=== PATIENT | male | born 1965 | race Caucasian/White ===

== ENCOUNTER 2017-11-17 10:59 | Emergency (ER) | payer BC, SELFPAY ==
[2017-11-17 11:03] VITALS: BP 110/84; PULSE 98; RESP 18; TEMP 36.3; O2SAT 97
--- NOTE | 2017-11-17 11:49 | ED.GENADUL ---
Disposition Clinical Impression: Hand laceration Disposition: HOME Condition: Fair Instructions: Care For Your Stitches (ED), Laceration (ED), Skin Adhesive Care (ED) Additional Instructions: Keep wound clean, dry, covered. Keep current dressing on for the next 24 hours. After that time he may change the dressing but please reapply a sterile dressing. Monitor for signs of infection including redness, warmth, drainage, fever/chills. If these arise please seek care urgently once again. Allow the adhesive to come off naturally. When at work or when performing activities that may put you at risk for contamination of your laceration, please wear gloves. You may wash with running water and soap but do not soak or submerge this will increase her risk of infection. Please return in 1 week for suture removal. Referrals: [facility] Emergency Dept. [Outside] Forms: Work Release Medical Decision Making - Medical Decision Making Patient presents today with chief complaint of laceration to the left hand. Patinet LHD. No neurovascular injury noted. No ligamentous involvement on exam. Wound is 8cm in length total but only the central 2cm is into the subcutaneous tissue and appears to need closure. Patient UTD on immunizations. Patient is close closure techniques. We discussed risk/benefits as well as the expected procedural steps. He voices understanding and wished to proceed. Procedure note: Using standard sterile technique, the wound was first washed with sterile saline. 2% lidocaine plain was then used to anesthetize the area. 5 cc was used. The sufficiently anesthetized the area. It was then copiously irrigated with sterile saline and cleansed chlorhexidine. Wound is explored to base in bloodless field. No foreign body or debris was noted. No tendon or bony involvement was noted. Wound is approximately 2 cm in length. Patient has a superficial scratch that runs extending from this. Patient then has a 1 cm flap laceration. This is very superficial with wound edges lying in an appropriate approximated fashion. Attention was first turned to the deeper 2 cm wound. This was closed with #5 simple interrupted 5-0 nylon. Patient tolerated this well. The more distal 1 cm superficial flap wound was then reapproximated and closed with adhesive. Patient tolerated procedure well. Patient tolerated procedure well. A sterile dressing was applied. We discussed care of wound in depth. We discussed care of adhesive as well as the care of the sutures. We discussed how to keep the wound as clean as possible to prevent infection. We discussed activities that he should avoid that we will place him at high risk for infection. Discussed signs symptoms of infection in depth and when to seek care urgently once again. He will return in 7 days for suture removal. All his questions and concerns were addressed and he is in agreement this plan. Note for work outlining his restrictions was given. History of Present Illness - General Chief complaint: Laceration Stated complaint: LEFT HAND LACERATION Time Seen by Provider: 11/17/17 11:47 Source: patient, RN notes reviewed Mode of arrival: ambulatory Limitations: no limitations - History of Present Illness Initial comments: Patient is a 52-year-old [id number] male presenting today with chief complaint of laceration to left hand. Patient reports a prior to arrival, while at work, he was working with an auger which came down on the dorsal aspect of the left hand. Noted laceration. Last tetanus was in 2011. Denies any altered sensation. Denies other injury the time of the incident. Denies any difficulty with range of motion of the wrist or hand. Pain is minimal at this time. - Related Data Lisinopril 5 mg PO DAILY 05/31/13 Multivitamin [Multi-Vitamin Daily] 1 tab PO DAILY 05/31/13 [place]-3 Fatty Acids [Fish Oil] 300 mg PO DAILY 05/31/13 Albuterol Sulfate [Albuterol Sulfate Hfa] 2 puff IH Q4H PRN #1 [email or web address] 06/26/13 Fluticasone/Salmeterol [Advair HFA 115-21] 2 puff IH BID inhaler 08/30/14 Montelukast Sodium 10 mg PO DAILY 08/26/16 Tiotropium [place] [Spiriva Respimat] 4 gm IH DAILY 01/26/17 Tamsulosin HCl 0.4 mg PO DAILY #90 tab-cap 03/02/17 Allergies Allergy/AdvReac Type Severity Reaction Status Date / Time No Known Allergies Allergy Unverified 11/17/17 11:05 Review of Systems Constitutional: no symptoms reported Respiratory: no symptoms reported Musculoskeletal: as per HPI Skin: as per HPI Neurological: as per HPI. denies: numbness, paresthesias Past Medical History - Past Medical History Medical history: cancer (Melanoma), COPD, hypertension Surgical history: other (Gita fundoplication) General Exam - General Limitations: no limitations General appearance: alert, in no apparent distress - Respiratory Respiratory exam: Absent: respiratory distress - Extremities Exam Extremities exam: Present: full ROM, tenderness, normal capillary refill. Absent: normal inspection (Exam of the LUE significant for 8cm laceration. Of this, 2cm is into the subcutaneous tissue. The remaining is quite superficial. No active bleeding. The deeper portion is into subQ fat, no tendon or bony involvement is noted. Full ROM. Sensation intact. Ligamentous testing of digits without abnormality. ), joint swelling - Neurological Exam Neurological exam: Present: alert, normal gait. Absent: motor sensory deficit - Psychiatric Psychiatric exam: Present: normal affect, normal mood - Skin Skin exam: Absent: intact (laceration as above) Course Vital Signs - 24 hr 11/17/17 11:03 Temperature 36.3 C L Pulse 98 H Respiratory 18 Rate Blood Pressure 110/84 Pulse Oximetry 97
== END 2017-11-17 12:26 | disposition home or self-care (01) ==
PROVIDERS: Emergency Provider Physician Assistant; PCP Nurse Practitioner Family
DX: S65.212A Laceration of superficial palmar arch of left hand, initial encounter (principal); W27.0XXA Contact with workbench tool, initial encounter
CPT/HCPCS: 12002

== ENCOUNTER 2017-11-24 13:02 | Emergency (ER) | payer BC, SELFPAY ==
[2017-11-24 13:10] VITALS: BP 108/71; PULSE 79; RESP 18; TEMP 36.7; O2SAT 96
[2017-11-24 13:12] VITALS: BP 108/71; PULSE 79; RESP 18; TEMP 36.7; O2SAT 96
--- NOTE | 2017-11-24 13:15 | ED.GENADUL ---
Disposition Clinical Impression: Visit for suture removal Disposition: HOME Condition: Fair Additional Instructions: Continue to keep wound clean, dry, covered. Monitor for signs of infection including redness, warmth, drainage, fever/chills. If these arise please seek care urgently once again. Follow-up with primary care as needed. Referrals: Marlene Garcia NP [Primary Care Provider] - Medical Decision Making - Medical Decision Making Patient presents today with chief complaint suture removal. Wound appears to be healing quite well. #5 simple interrupted sutures are visualized. What appears to be healing well, sutures are ready for removal. #5 sutures were easily removed by myself with no pain or difficulty. Patient I discussed wound care. Advised again on the signs symptoms of infection when to seek care urgently once again. Given with the patient does for work, advised he try to keep this clean and covered to help prevent infection. All his questions and concerns were addressed and he is in agreement with this plan. History of Present Illness - General Chief complaint: SutureRem Stated complaint: SUTURE REMOVAL Time Seen by Provider: 11/24/17 13:05 Source: patient, RN notes reviewed Mode of arrival: ambulatory Limitations: no limitations - History of Present Illness Initial comments: Patient is a 52-year-old male presents today for suture removal. Patient was seen here 1 week ago, sutures were placed into the dorsal aspect of the left hand by myself. #5 sutures were placed. He reports he has been following my instructions for suture care. He denies any pain. No fevers or chills. Not noted any discharge. No pain with range of motion of the hand. Has not noted any altered sensation. - Related Data Lisinopril 5 mg PO DAILY 05/31/13 Multivitamin [Multi-Vitamin Daily] 1 tab PO DAILY 05/31/13 [place]-3 Fatty Acids [Fish Oil] 300 mg PO DAILY 05/31/13 Albuterol Sulfate [Albuterol Sulfate Hfa] 2 puff IH Q4H PRN #1 [email or web address] 06/26/13 Fluticasone/Salmeterol [Advair HFA 115-21] 2 puff IH BID inhaler 08/30/14 Montelukast Sodium 10 mg PO DAILY 08/26/16 Tiotropium [place] [Spiriva Respimat] 4 gm IH DAILY 01/26/17 Tamsulosin HCl 0.4 mg PO DAILY #90 tab-cap 03/02/17 Allergies Allergy/AdvReac Type Severity Reaction Status Date / Time No Known Allergies Allergy Unverified 11/24/17 13:14 Review of Systems Constitutional: no symptoms reported, see HPI Respiratory: no symptoms reported Musculoskeletal: as per HPI Skin: as per HPI Neurological: as per HPI Past Medical History - Past Medical History Medical history: cancer (Melanoma), COPD, hypertension Surgical history: other (Gita fundoplication) General Exam - General Limitations: no limitations General appearance: alert, in no apparent distress - Eye Eye exam: Present: normal apperance - Respiratory Respiratory exam: Absent: respiratory distress - Extremities Exam Extremities exam: Present: full ROM, normal capillary refill. Absent: normal inspection (Exam the patient's left upper extremity is significant for well healing well. No surrounding erythema, no drainage, no pain with palpation. Patient is not noted to have any soft tissue swelling. He has full range of motion of all of his digits and wrist.), tenderness, joint swelling - Neurological Exam Neurological exam: Present: alert, normal gait - Psychiatric Psychiatric exam: Present: normal affect, normal mood - Skin Skin exam: Absent: intact (As above) Course Vital Signs - 24 hr 11/24/17 11/24/17 13:10 13:12 Temperature 36.7 C 36.7 C Pulse 79 79 Respiratory 18 18 Rate Blood Pressure 108/71 108/71 Pulse Oximetry 96 96
== END 2017-11-24 13:20 | disposition home or self-care (01) ==
PROVIDERS: Emergency Provider Student in an Organized Health Care Education/Training Program; PCP Nurse Practitioner Family
DX: Z48.02 Encounter for removal of sutures (principal); S65.21 Laceration of superficial palmar arch; W27.0XXD Contact with workbench tool, subsequent encounter

== ENCOUNTER 2018-05-02 16:46 | Outpatient (REF) | payer BC, SELFPAY ==
[2018-05-02 22:14] LABS: Anion Gap 12.2 mmol/L (3-11); BUN 23 mg/dL (7-18); CO2 24.8 mmol/L (21.0-32.0); CREATININE 1.04 mg/dL (0.70-1.30); Calcium 8.8 mg/dL (8.5-10.1); Chloride 106 mmol/L (98-107); Cholesterol 208 mg/dL (50-200); Glucose 102 mg/dL (70-100); HDL Cholesterol 53 mg/dL (40-60); LDL CHOLESTEROL 134 mg/dL (<100); Potassium 4.1 mmol/L (3.5-5.1); Sodium 143 mmol/L (136-145); Triglyceride 131 mg/dL (30-150)
[2018-05-04 09:29] LABS: PSA, Screening 0.3 ng/ml (0-3.5)
== END 2018-05-02 17:06 ==
LOC: NCHCN 16:46
PROVIDERS: PCP Nurse Practitioner Family; Visit Provider Specialist/Technologist Athletic Trainer
DX: Z00.00 Encounter for general adult medical examination without abnormal findings (principal); Z13.228 Encounter for screening for other metabolic disorders; Z13.220 Encounter for screening for lipoid disorders; Z12.5 Encounter for screening for malignant neoplasm of prostate
CPT/HCPCS: 80048; 80061; 83721; 84153

== ENCOUNTER 2018-05-19 16:57 | Outpatient (REF) | payer BC, SELFPAY | END 2018-05-19 17:17 | LOC: NCHCN 16:57 | PROVIDERS: PCP Nurse Practitioner Family; Visit Provider Family Medicine | DX: J02.9 Acute pharyngitis, unspecified (principal) | CPT/HCPCS: 87070 ==

== ENCOUNTER 2018-11-09 08:41 | Emergency (ER) | payer BC, SELFPAY ==
[2018-11-09 08:47] VITALS: BP 137/75; PULSE 97; RESP 16; TEMP 36.7; O2SAT 94
--- NOTE | 2018-11-09 08:58 | ED.GENADUL_ITS ---
Discharge Plan Disposition Patient Disposition: HOME Condition: Fair Discharge Details Chief Complaint: Headache Clinical Impression: COPD with exacerbation, Cough Primary Care Provider: Sukh Rubalcava ED Provider: Mora Francois Home Meds and New Rx's Prescriptions: New prednisone 20 mg tablet 20 mg PO DAILY Qty: 40 RF: 0 doxycycline hyclate 100 mg tablet 100 mg PO BID Qty: 10 RF: 0 Continued Nucala 100 mg recon soln 100 mg SC Q4W RF: 0 tamsulosin 0.4 mg capsule 0.4 mg PO DAILY Qty: 90 RF: 4 Advair HFA 8 GM HFA aerosol inhaler 2 puff Inhalation BID RF: 0 Spiriva Respimat 4 GM mist 4 gm Inhalation DAILY RF: 0 multivitamin [Daily Multi-Vitamin] 1 EACH tablet 1 tab PO DAILY RF: 0 lisinopril 5 MG tablet 5 mg PO DAILY RF: 0 Fish Oil 300 MG capsule 300 mg PO DAILY RF: 0 albuterol sulfate 8.5 GM HFA aerosol inhaler 2 puff Inhalation Q4H PRN Qty: 1 RF: 0 montelukast 10 MG tablet 10 mg PO DAILY RF: 0 Discharge Instructions Instructions: COPD (Chronic Obstructive Pulmonary Disease) (ED), Acute Cough (ED) Additional Instructions: Encourage hydration. Tylenol and/or Ibuprofen as needed for discomfort. Please take steroids and antibiotics as prescribed. Use the medications as previously prescribed. Nebulizer helped here, please use this as prescribed when at home to help with symptoms. If you develop fevers/chills, shortness of breath, inabilitiy to stay hydrated or other new/worsening symptoms please seek care urgently once again. Please follow up with primary care next week if not improved. Referrals: Sukh Rubalcava [Primary Care Provider] - Discharge Data Discharge Date/Time-TO BE ENTERED AT DEPARTURE: 11/09/18 10:15 Medical Decision Making Patient presents today with chief complaint of URI. He reports for the past 2 days, he has been having cough, increased mucus and sputum production, sore throat, sinus congestion. No documented fevers but reports that he has been feeling warm. Denies any recent travel. No recent antibiotics. Denies any chest pain. Is not short of breath. Has felt tight and attributes this to his COPD. Patient does have nebulizer at home but does not use this. On exam, the patient does appear nontoxic. He is noted to be slightly tachycardic with a heart rate of 97. Plan to give nebulizer treatment, obtain chest x-ray. Discussed this plan with the patient is in agreement. Chest XR reviewed by radiologist and reviewed as normal. Reevaluated patient, she is feeling much improved after nebulizer, lungs sound more clear, minimal wheezing at this time. As the patient has hx of COPD and has had a recent increase in symptoms including cough, sputum production, plan to treat with anti biotics and steroids. He is given strict return precautions. I encouraged that he have close follow-up with primary care. All his questions and concerns were addressed and he is in agreement with this plan. HPI General Mode of arrival: ambulatory . Date/Time Provider Initiated Documentation: 11/09/18 08:42 . Limitations to Documentation: no limitations . Information obtained by: patient and RN notes reviewed . HPI Narrative: Patient is a 53-year-old male with history of COPD, presents today with chief complaint of URI. He reports that he began having congestion, sinus pressure, cough,GI upset, sore throat. States that he has felt like he has had low grade fever but reports that this has been subjective. Has felt tight , has used his rescue inhaler x 2 over the past 2 days. Has a nebulizer at home but has not used this. States he is bringing up scant amount of yellow phlegm. Is a nonsmoker. Denies CP. States that he has had diminished appetite but denies N/V/D. No abdominal pain. Related Data Home Medications Medication Instructions Recorded Confirmed Fish Oil 300 mg PO DAILY 05/31/13 11/09/18 lisinopril 5 mg PO DAILY 05/31/13 11/09/18 multivitamin [Daily Multi-Vitamin] 1 tab PO DAILY 05/31/13 11/24/17 albuterol sulfate 2 puff INHALATION Q4H PRN #1 06/26/13 11/09/18 [email or web address].ad Advair HFA 2 puff INHALATION BID inhaler 08/30/14 11/09/18 montelukast 10 mg PO DAILY 08/26/16 11/09/18 Spiriva Respimat 4 gm INHALATION DAILY 01/26/17 11/09/18 mepolizumab 100 mg subcutaneous 100 mg SC Q4W 08/30/18 11/09/18 solution tamsulosin 0.4 mg capsule 0.4 mg PO DAILY #90 tab-cap 08/30/18 11/09/18 doxycycline hyclate 100 mg PO BID #10 tab 11/09/18 prednisone 20 mg PO DAILY #40 tab 11/09/18 Previous Rx's Medication Instructions Recorded albuterol sulfate 2 puff INHALATION Q4H PRN #1 06/26/13 hfa.aer.ad tamsulosin 0.4 mg capsule 0.4 mg PO DAILY #90 tab-cap 08/30/18 doxycycline hyclate 100 mg PO BID #10 tab 11/09/18 prednisone 20 mg PO DAILY #40 tab 11/09/18 Allergies Allergy/AdvReac Type Severity Reaction Status Date / Time No Known Allergies Allergy Unverified 08/30/18 08:10 General Stated Complaint: Headache EUFEMIA: 3 Review of Systems Constitutional Reports as per HPI, Denies chills, Reports fatigue, Reports fever(s), Denies headache(s) and Denies poor appetite Eyes Reports as per HPI, Denies eye discharge and Denies irritation ENT Reports as per HPI and Denies headache(s) Cardiovascular Reports as per HPI, Denies chest pain, Denies dyspnea and Denies dyspnea on exertion Respiratory Reports as per HPI, Reports cough, Denies pain on inspiration, Denies pain with cough, Denies dyspnea and Denies dyspnea on exertion Gastrointestinal Reports as per HPI, Denies abdominal pain, Denies change in bowel habits, Denies nausea and Denies vomiting Integumentary/Breasts Reports as per HPI and Denies rash Neurologic Reports as per HPI and Denies headache(s) Endocrine Reports fatigue PFSH Medical History COPD (chronic obstructive pulmonary disease) GERD (gastroesophageal reflux disease) History of malignant melanoma Hyperlipidemia Hypertension Surgical History Colonoscopy - MAC EGD - MAC Skin Cancer Removal Social History Smoking/Tobacco Use Status: Former Tobacco Use Drug use: Never Substance use type: does not use Do you feel safe in your relationship?: Yes Exam Const General: cooperative, healthy appearing, comfortable, no acute distress, well developed and well groomed Nutritional Appearance: average body habitus and well nourished Orientation: alert and awake [facility] Head: normal to inspection, normocephalic and atraumatic Ears: hearing grossly normal bilaterally, external ears normal and TM's normal bilaterally General nose exam: external nose normal and nares normal Face and sinus: normal facial exam, sinuses nontender and face symmetric Mouth: oral mucosae normal, lip normal, tongue normal, oropharynx normal and moist mucous membranes Teeth and gingiva: dentition normal Throat: posterior oropharynx normal, tonsils normal and uvula midline Eyes General: appearance normal, both eyes and all related structures Neck Neck: normal visual inspection, full ROM, no lymphadenopathy and no meningeal signs Resp Effort & Inspection: normal respiratory effort, able to speak in complete sentences and no respiratory distress Auscultation: no rales, no rhonchi and wheezes expiratory wheezes and scattered wheezes Cardio Rate: regular rate Rhythm: regular rhythm Heart Sounds: S1 normal and S2 normal Skin General skin exam: no rashes or lesions noted Neuro General: alert and awake Cognition: normal cognition Speech: speech normal Gait: normal gait Psych Appearance: grossly normal and well kempt Mental Status: mental status grossly normal Speech and Movement: speech and movement normal Course Vital Signs Temperature 36.7 C 11/09/18 08:47 Pulse 97 H 11/09/18 08:47 Respiratory Rate 16 11/09/18 08:47 Blood Pressure 137/75 11/09/18 08:47 Pulse Oximetry 94 L 11/09/18 08:47 Temperature 36.7 C 11/09/18 08:47 Temperature Source Skin 11/09/18 08:47 Pulse 97 H 11/09/18 08:47 Respiratory Rate 16 11/09/18 08:47 Respiratory Effort Non-Labored 11/09/18 08:51 Blood Pressure 137/75 11/09/18 08:47 Pulse Oximetry 94 L 11/09/18 08:47 Oxygen Delivery Method Room Air 11/09/18 08:47 Oxygen Flow Rate 0 11/09/18 08:47 Pain Level 7 11/09/18 08:47
--- NOTE | 2018-11-09 09:03 | DI.RAD_ITS ---
SYMPTOMS/DIAGNOSIS: COUGH, WHEEZING PA AND LATERAL CHEST: Comparison is made with [id number]. The heart size is normal. The lungs show emphysematous and fibrotic changes. No superimposed infiltrate, effusion or pulmonary edema is seen. There is no pneumothorax. IMPRESSION: No acute abnormality.
[2018-11-09] MEDS: Albuterol/Ipratropium 3 ML UPD VIAL UPD (09:47)
--- NOTE | 2018-11-09 10:00 | NUR.NOTE ---
Nursing Note: pt reports moderate relief after nebulizer
--- NOTE | 2018-11-09 10:15 | NUR.NOTE ---
patient feels breathing is improved post nebulizer treatment Nursing Note:
== END 2018-11-09 10:15 | disposition home or self-care (01) ==
PROVIDERS: Emergency Provider Physician Assistant; PCP Specialist/Technologist Athletic Trainer
DX: J44.1 Chronic obstructive pulmonary disease with (acute) exacerbation (principal); J02.9 Acute pharyngitis, unspecified; R09.81 Nasal congestion; I10 Essential (primary) hypertension; Z87.891 Personal history of nicotine dependence
CPT/HCPCS: 94640; 99283; 71046; J7620

== ENCOUNTER 2019-05-12 11:04 | Outpatient (REF) | payer BC, SELFPAY ==
[2019-05-12 22:03] LABS: Hemoglobin A1C 5.8 % (3.8-5.6)
[2019-05-12 22:26] LABS: Anion Gap 9.3 mmol/L (3-11); BUN 21 mg/dL (7-18); CO2 27.7 mmol/L (21.0-32.0); CREATININE 0.86 mg/dL (0.70-1.30); Calcium 8.9 mg/dL (8.5-10.1); Calculated LDL 139 mg/dL (<100); Chloride 104 mmol/L (98-107); Cholesterol 212 mg/dL (<200); Glucose 92 mg/dL (74-106); HDL Cholesterol 50 mg/dL (40-60); Magnesium 2.1 mg/dL (1.8-2.4); Potassium 4.4 mmol/L (3.5-5.1); Sodium 141 mmol/L (136-145); TSH (W/Ref FT4) 1.52 uIU/mL (0.36-3.74); Triglyceride 117 mg/dL (<150)
== END 2019-05-12 11:24 ==
LOC: NCHCN 11:04
PROVIDERS: PCP Specialist/Technologist Athletic Trainer; Visit Provider Specialist/Technologist Athletic Trainer
DX: I10 Essential (primary) hypertension (principal); E78.5 Hyperlipidemia, unspecified
CPT/HCPCS: 80048; 80061; 83036; 83735; 84443

== ENCOUNTER 2019-05-30 01:25 | Outpatient (CLI) | payer BC, SELFPAY ==
--- NOTE | 2019-05-30 | DI.NM_ITS ---
APPROVED REPORT Exam: Exercise Treadmill Patient Location: Out-Patient Room/Bed: Stress Nurse: Sandi Mejia RN BMI: 23.08 Baseline Rhythm: Sinus Rhythm Medical History Medical History: Hyperlipidemia Cardiac Medications: Lisinopril Allergies: No known drug allergies Cardiac Risk Factors: Hyperlipidemia, Asthma, former smoker Pretest Chest Pain Characteristics: Exertional Chest pain Exercise History: Physically active Lung Sounds: Clear to auscultation Heart Sounds: Regular Stress Test Details Test: Exercise stress testing was performed using a Faheem protocol. Rest Isotope: Tc-99m Sestamibi. Dose: 10.7 Date: 05/30/2019 Injection Time: 1040 Stress Isotope: Tc-99m Sestamibi. Dose: 32.4 Date: 05/30/2019 Injection Time: 1210 HR Resting HR Supine: 68 bpm Max Heart Rate (APMHR): 166 bpm Resting HR Standin bpm Target HR (85% APMHR): 141 bpm Max HR Achieved: 154 bpm % of APMHR: 92 HR response to stress: Normal HR response to stress BP Resting BP Supine: 128/80 mmHg Resting BP Standin/80 mmHg Max BP: 180/80 mmHg Recovery BP: 136/88 mmHg BP response to stress: Normal blood pressure response to stress. ECG Resting ECG: Sinus Rhythm Stress ECG: Sinus Tachycardia ST Change: No significant ST segment changes Recovery ECG: Sinus Rhythm Recovery ST Change: No significant ST segment changes Clinical Reason for Termination: Fatigue Stress Symptoms: General Fatigue Exercise duration: 12 min01 sec Highest Stage Reached: Stage 4: 4.2 mph at 16% grade. Exercise capacity: 13.48 METs Functional Capacity: Average Capacity Scale: Active Stress ECG Conclusion 1. Patient exercised for 12 minutes (13 METS). 2. There is no evidence of ischemia on the ECG portion of this exam. Protocol Used: Faheem Protocol Stress Test Summary STAGE Time (mins) Speed (mph) Grade (%) HR BP SYMPTOMS METS Supine 68 128/80 Standing 76 130/80 1 3 1.7 10 98 140/82 4.6 2 6 2.5 12 109 140/86 7 3 9 3.4 14 132 10.2 4 12 4.2 16 154 12.9 1 min recovery 138 180/80 3 min recovery 100 150/78 6 min recovery 96 136/88 MPI Conclusion Ejection fraction was 56% with exercise. There were no wall motion abnormalities. There is no evidence of ischemia on the imaging portion of this exam. This represents a normal SPECT imaging test. Radiologist Interpretation Radiologist agrees with Forest Fire Prevention Manager's Interpretation. Radiologist Interpretation by: Jeannie Rojas MD Interpretation Date/Time: 05/30/2019 15:31:00
== END 2019-05-30 01:45 ==
PROVIDERS: PCP Specialist/Technologist Athletic Trainer; Visit Provider Specialist/Technologist Athletic Trainer
DX: R07.89 Other chest pain (principal); E78.5 Hyperlipidemia, unspecified; Z87.891 Personal history of nicotine dependence
CPT/HCPCS: 78452; 93017

== ENCOUNTER 2019-07-07 17:56 | Outpatient (CLI) | payer BC, SELFPAY ==
[2019-07-10 09:58] LABS: COVID-19 RT-PCR Result Negative (Negative)
== END 2019-07-07 18:16 ==
PROVIDERS: PCP Specialist/Technologist Athletic Trainer; Visit Provider Physician Assistant
DX: J44.1 Chronic obstructive pulmonary disease with (acute) exacerbation (principal)
CPT/HCPCS: U0003

== ENCOUNTER 2019-09-15 08:59 | Outpatient (REF) | payer BC, SELFPAY ==
[2019-09-15 20:03] LABS: Hemoglobin A1C 5.7 % (3.8-5.6)
[2019-09-15 20:10] LABS: ALT 27 U/L (16-63); AST 23 U/L (15-37); Albumin 3.9 g/dL (3.4-5.0); Alkaline Phosphatase 71 U/L (46-116); Bilirubin, Total 1.4 mg/dL (0.2-1.0); Calculated LDL 151 mg/dL (<100); Cholesterol 231 mg/dL (<200); HDL Cholesterol 52 mg/dL (40-60); Total Protein 7.2 g/dL (6.4-8.2); Triglyceride 140 mg/dL (<150)
[2019-09-15 20:20] LABS: Bilirubin, Direct 0.19 mg/dL (0.00-0.20)
== END 2019-09-15 09:19 ==
LOC: NCHCN 08:59
PROVIDERS: PCP Specialist/Technologist Athletic Trainer; Visit Provider Nurse Practitioner Family
DX: R10.13 Epigastric pain (principal); I10 Essential (primary) hypertension; J82 Pulmonary eosinophilia, not elsewhere classified
CPT/HCPCS: 80061; 80076; 83036

== ENCOUNTER 2019-09-19 00:39 | Outpatient (CLI) | payer BC, SELFPAY ==
--- NOTE | 2019-09-19 | DI.US_ITS ---
EXAM: US ABDOMEN INDICATION: EPIGASTRIC DISCOMFORT,R10.13 COMPARISON: No exams were available for comparison TECHNIQUE: Ultrasound abdomen performed using standard protocol FINDINGS: Abdominal ultrasound was performed according to the usual protocol. The liver is normal in size and shape. No focal hepatic lesion seen. There is no evidence of cholelithiasis or biliary dilatation. No gallbladder wall thickening or peric holecystic fluid collection. The pancreas is obscured by overlying bowel gas. Spleen is unremarkable in appearance with no focal lesion. Kidneys are normal in size and shape. No renal mass, hydronephrosis, or nephrolithiasis. Abdominal aorta and IVC are of normal diameter as visualized although incompletely seen. IMPRESSION: Negative abdominal ultrasound .
--- NOTE | 2019-09-19 | DI.RAD_ITS ---
EXAM: RF UGI SERIES SINGLE CLINICAL HISTORY: EPIGASTRIC DISCOMFORT,R10.13 COMPARISON: CR XR CHEST 2V PA LATERAL from 11/09/2018 FINDINGS: Preliminary films the chest show changes of COPD. Lateral view of the neck shows no significant cont our abnormality of the hypopharynx or larynx. Barium was ingested and showed grossly normal esophage al motility and mucosal appearance to the level of the distal esophagus. There is contour irregulari ty at the gastro esophageal junction and gastric fundus, mass or mucosal lesion at this site not excl uded. Remainder of the stomach is unremarkable in appearance, pylorus and duodenum appear normal. IMPRESSION: Abnormal contour of the gastroesophageal junction and associated portion of the gastric fundus, mass and/or mucosal irregular lesion may be present. Endoscopy recommended for correlation.
[2019-09-19] MEDS: Barium Sulfate 60% W/V 355 ML BTL PO (09:34)
== END 2019-09-19 00:59 ==
PROVIDERS: PCP Nurse Practitioner Family; Visit Provider Nurse Practitioner Family
DX: R10.13 Epigastric pain (principal); J44.9 Chronic obstructive pulmonary disease, unspecified; K22.8 Other specified diseases of esophagus
CPT/HCPCS: 74220; 74240; 76700

== ENCOUNTER 2020-06-13 18:41 | Outpatient (REF) | payer BC, SELFPAY ==
[2020-06-13 16:05] LABS: Anion Gap 9.4 mmol/L (3-11); BUN 21 mg/dL (7-18); CO2 25.6 mmol/L (21.0-32.0); CREATININE 0.8 mg/dL (0.70-1.30); Calcium 8.7 mg/dL (8.5-10.1); Chloride 107 mmol/L (98-107); Glucose 92 mg/dL (74-106); Potassium 4.3 mmol/L (3.5-5.1); Sodium 142 mmol/L (136-145); Uric Acid 3.9 mg/dL (3.5-7.2)
[2020-06-13 21:18] LABS: Rheumatoid Factor 271.8 IU/mL (<12.0)
[2020-06-13 21:42] LABS: ESR 26 mm/hr (<or=20)
[2020-06-14 10:50] LABS: Lyme Ab w Rflx to Lyme Confirm Negative (Negative)
[2020-06-15 00:15] LABS: Anaplasma phagocytophilum Negative (Negative); B. miyamotoi PCR Negative (Negative); Babesia divergens/MO-1 Negative (Negative); Babesia duncani Negative (Negative); Babesia microti Negative (Negative); Ehrlichia chaffeensis Negative (Negative); Ehrlichia ewingii/canis Negative (Negative); Ehrlichia muris eauclairensis Negative (Negative)
[2020-06-16 15:22] LABS: ANA Interpretation Positive (Negative); ANA Titer Pattern 1:80 Homogeneous
== END 2020-06-13 18:42 | disposition home or self-care (01) ==
LOC: NCHCN 18:41
PROVIDERS: PCP Nurse Practitioner Family; Visit Provider Nurse Practitioner Family
DX: M25.542 Pain in joints of left hand (principal); M79.672 Pain in left foot
CPT/HCPCS: 80048; 85652; 87798; 84550; 86038; 86140; 86431; 86618

== ENCOUNTER 2020-06-24 04:34 | Outpatient (CLI) | payer BC, SELFPAY ==
[2020-06-24 11:38] LABS: HCT 43.8 % (40.0-50.0); HGB 14.8 g/dL (13.5-17.5); MCHC 33.8 % (32.0-36.0); MCV 88.8 fL (80-95); MPV 9.8 fL (8.0-11.0); Platelet Count 331 10^3/uL (130-400); RBC 4.93 10^6/uL (4.36-5.78); RDW 12.7 % (11.8-14.1); RDW-SD 41.5 fL; WBC 5.22 10^3/uL (4.4-10.8)
[2020-06-24 12:24] LABS: ALT 40 U/L (16-63); AST 23 U/L (15-37); Albumin 3.7 g/dL (3.4-5.0); Alkaline Phosphatase 80 U/L (46-116); Bilirubin, Direct 0.2 mg/dL (0.0-0.2); Bilirubin, Total 1.3 mg/dL (0.2-1.0); Total Protein 7.2 g/dL (6.4-8.2)
[2020-06-25 10:59] LABS: Cyclic Citrullinated Peptide 9.9 U/mL (<5.0)
== END 2020-06-24 04:35 | disposition home or self-care (01) ==
LOC: LBO 04:34
PROVIDERS: PCP Nurse Practitioner Family; Visit Provider Nurse Practitioner Family
DX: M25.542 Pain in joints of left hand (principal); M79.672 Pain in left foot
CPT/HCPCS: 36415; 80076; 85027; 86200

== ENCOUNTER 2020-07-25 13:41 | Outpatient (REF) | payer BC, SELFPAY ==
[2020-07-26 14:48] LABS: COVID-19 RT-PCR UVMMC Result Negative (Negative)
== END 2020-07-25 13:42 | disposition home or self-care (01) ==
LOC: NCHCN 13:41
PROVIDERS: PCP Nurse Practitioner Family; Visit Provider Nurse Practitioner Family
DX: Z20.822 Contact with and (suspected) exposure to COVID-19 (principal)
CPT/HCPCS: U0003

== ENCOUNTER 2020-12-12 12:17 | Outpatient (CLI) | payer BC, SELFPAY ==
[2020-12-12] MEDS: Albuterol HFA 18 GM 200 PUFF INH IH (16:17)
[2020-12-12] MEDS: Inhaler, Assist Device 1 EACH MC (16:17)
--- NOTE | 2020-12-13 07:40 | PFT_ITS ---
Date of service: 12/12/20 Time of Service: 15:05 Pulmonary Function Test Result Requesting Provider Karuna Indications: Worsening respiratory symptoms Interpretation Spirometry: There is moderate airflow obstruction. There is a significant bronchodilator effect. Lung Volumes: There is hyperinflation and air trapping Diffusion Capacity: The diffusion is normal Airway Pressure: Airways resistance is elevated Impression Moderate airflow obstruction with a significant bronchodilator effect with evidence of hyperinflation and air trapping and a normal diffusion could re present poorly controlled asthma or bronchitis. Note: When compared to 10/16/2016 the FEV1 and FVC have both reduced and there is a higher degree of hyperinflation present. Clinical Correlation therefore is recommended.
== END 2020-12-12 12:18 | disposition home or self-care (01) ==
LOC: RT 13:40
PROVIDERS: PCP Nurse Practitioner Family; Visit Provider Student in an Organized Health Care Education/Training Program
DX: J45.909 Unspecified asthma, uncomplicated (principal); R94.2 Abnormal results of pulmonary function studies
CPT/HCPCS: 94060; 94726; 94729

== ENCOUNTER 2021-06-13 18:48 | Outpatient (REF) | payer BC, SELFPAY ==
[2021-06-13 12:21] LABS: HCT 43.4 % (40.0-50.0); HGB 14.2 g/dL (13.5-17.5); MCH 29.4 pg (27.0-33.0); MCHC 32.7 % (32.0-36.0); MCV 89.9 fL (80-95); MPV 10.8 fL (8.0-11.0); Platelet Count 255 10^3/uL (130-400); RBC 4.83 10^6/uL (4.36-5.78); RDW-SD 42.6 fL; WBC 4.48 10^3/uL (4.4-10.8)
[2021-06-13 12:38] LABS: ALT 31 U/L (16-63); AST 20 U/L (15-37); Albumin 3.8 g/dL (3.4-5.0); Alkaline Phosphatase 51 U/L (46-116); Anion Gap 9.3 mmol/L (3-11); BUN 18 mg/dL (7-18); Bilirubin, Total 1.2 mg/dL (0.2-1.0); CO2 26.7 mmol/L (21.0-32.0); Calcium 8.5 mg/dL (8.5-10.1); Calculated LDL 117 mg/dL (<100); Chloride 106 mmol/L (98-107); Cholesterol 192 mg/dL (<200); Glucose 86 mg/dL (74-106); HDL Cholesterol 54 mg/dL (40-60); Potassium 4.1 mmol/L (3.5-5.1); Sodium 142 mmol/L (136-145); Total Protein 6.7 g/dL (6.4-8.2); Triglyceride 106 mg/dL (<150)
[2021-06-13 12:42] LABS: Hemoglobin A1C 5.7 % (<5.7)
== END 2021-06-13 18:49 | disposition home or self-care (01) ==
LOC: NCHCN 18:48
PROVIDERS: PCP Nurse Practitioner Family; Visit Provider Nurse Practitioner Family
DX: Z00.00 Encounter for general adult medical examination without abnormal findings (principal)
CPT/HCPCS: 80053; 80061; 85027; 83036

== ENCOUNTER 2021-12-03 14:13 | Emergency (ER) | payer BC, SELFPAY ==
[2021-12-03] VITALS (14 sets, daily range): BP systolic 101–140; BP diastolic 58–83; PULSE 70–85; RESP 12–23; TEMP 36.1–36.7; O2SAT 95–99
--- NOTE | 2021-12-03 15:26 | NUR.NOTE ---
Nursing Note: PT TO ROOM, VSS, PT W/O COMPLAINTS, DENIES PAIN/SOB, PROVIDER AWARE.
--- NOTE | 2021-12-03 16:00 | RT.EKG_ITS ---
APPROVED REPORT Exam: Resting ECG Reason for Exam: hypotension Patient Location: E HR:71 bpm ECG Measurements Heart Rate 71 AXIS MA 179 P 56 QRSd 101 QRS 45 QT 397 T 40 QTc 431 Conclusion Sinus rhythm...normal P axis, V-rate 60- 99
[2021-12-03] MEDS: Normal Saline 1,000 ML 1000 ML IV (16:25)
[2021-12-03 16:30] LABS: Abs Immature Grans 0.02 10^3/uL (0.0-0.06); Absolute Basophil Count 0.05 10^3/uL (0.0-0.2); Absolute Eosinophil Count 0.08 10^3/uL (0.0-0.7); Absolute Lymphocyte Count 1.28 10^3/uL (1.2-3.4); Absolute Monocyte Count 0.72 10^3/uL (0.1-0.8); Absolute Neutrophil Count 5.09 10^3/uL (1.2-6.7); Basophils % 0.7; Eosinophils % 1.1; HCT 43.2 % (40.0-50.0); HGB 14.5 g/dL (13.5-17.5); Immature Grans % 0.3; Lymphocytes % 17.7; MCH 29.6 pg (27.0-33.0); MCHC 33.6 % (32.0-36.0); MCV 88 fL (80-95); MPV 10.1 fL (8.0-11.0); Monocytes % 9.9; Neutrophils % 70.3; Platelet Count 270 10^3/uL (130-400); RDW 13.3 % (11.8-14.1); RDW-SD 43.6 fL; WBC 7.24 10^3/uL (4.4-10.8)
[2021-12-03 16:52] LABS: ALT 24 U/L (16-63); AST 19 U/L (15-37); Alkaline Phosphatase 58 U/L (46-116); Anion Gap 7.9 mmol/L (3-11); BUN 25 mg/dL (7-18); CO2 29.1 mmol/L (21.0-32.0); CREATININE 1.6 mg/dL (0.70-1.30); Calcium 9.3 mg/dL (8.5-10.1); Chloride 106 mmol/L (98-107); Estimated GFR 49.94 (mL/min/1.73m2); Glucose 92 mg/dL (74-106); Potassium 4.3 mmol/L (3.5-5.1); Sodium 143 mmol/L (136-145); Total Protein 7.6 g/dL (6.4-8.2)
[2021-12-03 16:54] LABS: Bilirubin Negative (Negative); Blood Trace-intact (Negative); Clarity Clear (Clear); Glucose Negative (Negative); Ketones Negative (Negative); Leukocyte Esterase Negative (Negative); Nitrite Negative (Negative); Urobilinogen 0.2 EU/dL (Up TO 0.2)
--- NOTE | 2021-12-03 17:11 | ED.GENADUL_ITS ---
Discharge Plan Disposition Patient Disposition: HOME Condition: Stable Discharge Details Clinical Impression: Hypotension, Acute renal insufficiency, Acute dehydration Primary Care Provider: Carolina Paul ED Provider: Alondra Devries Home Meds and New Rx's Prescriptions: Continued tamsulosin 0.4 mg capsule 0.4 mg PO DAILY Qty: 90 4RF Rx Instructions: take med 30mins after breakfast daily Advair HFA 230-21 mcg/actuation HFA aerosol inhaler 2 puff inhalation BID Qty: 12 8RF hydroxychloroquine 200 mg tablet 200 mg PO DAILY lisinopril 20 mg tablet 10 mg PO DAILY epinephrine [EpiPen 2-Jose] 0.3 mg/0.3 mL auto-injector 0.3 mg IM ONCE Qty: 1 0RF Rx Instructions: as a single dose Nucala 100 mg/mL auto-injector 100 mg subcut Q4W Qty: 1 11RF Spiriva Respimat 1.25 mcg/actuation mist See Rx Instructions .ROUTE .COMPLEX Qty: 4 5RF Dose Instruction: INHALE TWO PUFFS BY MOUTH EVERY DAY Rx Instructions: INHALE TWO PUFFS BY MOUTH EVERY DAY multivitamin [Daily Multi-Vitamin] 1 EACH tablet 1 tab PO DAILY Fish Oil 300 MG capsule 300 mg PO DAILY albuterol sulfate 8.5 GM HFA aerosol inhaler 2 puff Inhalation Q4H PRN Qty: 1 0RF montelukast 10 MG tablet 10 mg PO DAILY Discharge Instructions Instructions: Dehydration (ED) Additional Instructions: Please have your kidney function rechecked by your doctor at the beginning of next week Consume at least eight 8 ounce glasses of of fluid daily, this does not include soda, tea, and coffee Make sure you are urinating at least 3 times a day Skip your lisinopril tonight and check your blood pressure before you take your blood pressure medication tomorrow, if your blood pressure is under 140/80, I recommend skipping tomorrow's dose as well Return earlier should you have new or worsening complaints Referrals: Carolina Paul [Primary Care Provider] - Discharge Data Discharge Date/Time-TO BE ENTERED AT DEPARTURE: 12/03/21 17:31 Medical Decision Making Patient appears well He has not been hypertensive in the emergency department I suspect he is dehydrated and he is encouraged to follow closely with his primary care physician He will not take his lisinopril unless his blood pressure normalized within the next several days in which case he will resume it Return precautions discussed and patient expressed understanding Medical Records Medical records reviewed: Yes I reviewed the patient's medical records. Lab Data Lab results reviewed: Yes I reviewed the patient's lab results. HPI General Date/Time Provider Initiated Documentation: 12/03/21 14:23 . HPI Narrative: This 56-year-old gentleman arrives from his emergency care attendant office for report of hypotension prior to arrival. Denies any new medications. Does state that his blood pressure meds were adjusted approximately 2 months ago secondary to hypotension. He is taking 10 mg of lisinopril. He feels fine. He denies any weakness or dizziness. He denies any chest pain or shortness of breath. He states he only urinated once today. 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 He denies history of kidney issues in the past. He denies any fever or chills. Denies chest pain or shortness of breath. Denies any palpitations. Related Data Home Medications Medication Instructions Recorded Confirmed multivitamin (Daily Multi-Vitamin 1 tab PO DAILY 05/31/13 12/03/21 tablet) omega-3 fatty acids 300 mg capsule 300 mg PO DAILY 05/31/13 12/03/21 (Fish Oil) albuterol sulfate 90 mcg/actuation 2 puff inhalation Q4H PRN ##1 06/26/13 12/03/21 aerosol inhaler montelukast 10 mg tablet 10 mg PO DAILY 08/26/16 12/03/21 hydroxychloroquine 200 mg tablet 200 mg PO DAILY 10/21/20 12/03/21 fluticasone propionate 230 2 puff inhalation BID #12 grams 11/26/20 12/03/21 mcg-salmeterol 21 mcg/actuation HFA inhaler (Advair HFA) mepolizumab 100 mg/mL subcutaneous 100 mg subcut Q4W #1 mL 01/02/21 12/03/21 auto-injector (Nucala) epinephrine 0.3 mg/0.3 mL 0.3 mg (0.3 mL) IM ONCE #1 ea 01/17/21 12/03/21 injection, auto-injector (EpiPen 2-Jose) lisinopril 20 mg tablet 10 mg PO DAILY 10/22/21 12/03/21 tamsulosin 0.4 mg capsule 0.4 mg PO DAILY #90 tab-caps 10/22/21 12/03/21 tiotropium bromide 1.25 See Rx Instructions .Route 10/30/21 12/03/21 mcg/actuation mist for inhalation .COMPLEX #4 grams (Spiriva Respimat) Previous Rx's Medication Instructions Recorded albuterol sulfate 90 mcg/actuation 2 puff inhalation Q4H PRN ##1 06/26/13 aerosol inhaler fluticasone propionate 230 2 puff inhalation BID #12 grams 11/26/20 mcg-salmeterol 21 mcg/actuation HFA inhaler (Advair HFA) mepolizumab 100 mg/mL subcutaneous 100 mg subcut Q4W #1 mL 01/02/21 auto-injector (Nucala) epinephrine 0.3 mg/0.3 mL 0.3 mg (0.3 mL) IM ONCE #1 ea 01/17/21 injection, auto-injector (EpiPen 2-Jose) tamsulosin 0.4 mg capsule 0.4 mg PO DAILY #90 tab-caps 10/22/21 tiotropium bromide 1.25 See Rx Instructions .Route 10/30/21 mcg/actuation mist for inhalation .COMPLEX #4 grams (Spiriva Respimat) Allergies Allergy/AdvReac Type Severity Reaction Status Date / Time No Known Allergies Allergy Unverified 12/03/21 14:24 General Stated Complaint: GenMedical EUFEMIA: 4 Review of Systems All systems reviewed & are unremarkable except as noted in HPI and below PFSH All Active Problems (Updated 12/03/21 @ 17:[address] Jauregui) Acute renal insufficiency (Acute) Acute dehydration (Acute) Hypotension (Acute) Asthma (Chronic) Hypertension (Acute 01/26/17) BPH (benign prostatic hyperplasia) (Acute 01/26/17) Medical History (Updated 12/03/21 @ 17:[address] Jauregui) GERD (gastroesophageal reflux disease) History of malignant melanoma Hyperlipidemia Hypertension Surgical History Colonoscopy - MAC EGD - MAC Skin Cancer Removal melenoma Social History (Updated 10/31/20 @ 13:39 by Guadalupe Interiano Smoking/Tobacco Use Status: Former Tobacco Use tobacco type: cigarettes Quit Date: 03/29/96 Tobacco: How many years used: 15 Smoking risk assessment performed?: Yes Alcohol Intake: current Alcohol Intake frequency: holidays/special occasions only Drug use: Never Substance use type: does not use Do you feel safe at home: Yes Do you feel safe in your relationship?: Yes Exam Const General: cooperative, comfortable and no acute distress Eyes Pupils: PERRL Resp Effort & Inspection: normal respiratory effort Cardio Rate: regular rate Rhythm: regular rhythm GI Inspection: normal to inspection Other: non-tender abdominal exam Skin General skin exam: no rashes or lesions noted Neuro General: patient alert and patient oriented x3 Extrem Other: no peripheral edema Course Vital Signs Vital signs: Vital Signs Temperature 36.1 C L 12/03/21 14:16 Pulse 85 12/03/21 14:16 Respiratory Rate 16 12/03/21 14:16 Blood Pressure 101/58 L 12/03/21 14:16 Pulse Oximetry 97 12/03/21 14:16 Temperature 36.7 C 12/03/21 15:21 Temperature Source Oral 12/03/21 15:21 Pulse 82 12/03/21 16:40 Respiratory Rate 20 12/03/21 16:40 Respiratory Effort Non-Labored 12/03/21 14:20 Respiratory Depth Normal 12/03/21 14:20 Respiratory Pattern Normal 12/03/21 14:20 Blood Pressure 127/77 12/03/21 16:40 Blood Pressure Position Sitting 12/03/21 14:16 Pulse Oximetry 98 12/03/21 16:40 Oxygen Delivery Method Room Air 12/03/21 16:40 Oxygen Flow Rate 0 12/03/21 16:40 Pain Level 0 12/03/21 14:16 Lab/Test Results Lab/Test Results: Laboratory Tests Range/Units 12/03/21 12/03/21 12/03/21 16:22 16:22 16:45 WBC (4.4-10.8) 10^3/uL 7.24 RBC (4.36-5.78) 10^6/uL 4.90 Hgb (13.5-17.5) g/dL 14.5 Hct (40.0-50.0) % 43.2 MCV (80-95) fL 88 MCH (27.0-33.0) pg 29.6 MCHC (32.0-36.0) % 33.6 RDW (11.8-14.1) % 13.3 Plt Count (130-400) 10^3/uL 270 MPV (8.0-11.0) fL 10.1 Immature Gran % 0.3 Neutrophils % 70.3 Lymphocytes % 17.7 Monocytes % 9.9 Eosinophils % 1.1 Basophils % 0.7 Nucleated RBC % (0.0-0.3) % 0.0 Absolute Neutrophils (1.2-6.7) 10^3/uL 5.09 Absolute Lymphocytes (1.2-3.4) 10^3/uL 1.28 Absolute Monocytes (0.1-0.8) 10^3/uL 0.72 Absolute Eosinophils (0.0-0.7) 10^3/uL 0.08 Absolute Basophils (0.0-0.2) 10^3/uL 0.05 Sodium (136-145) mmol/L 143 Potassium (3.5-5.1) mmol/L 4.3 Chloride (98-107) mmol/L 106 Carbon Dioxide (21.0-32.0) mmol/L 29.1 Anion Gap (3-11) mmol/L 7.9 BUN (7-18) mg/dL 25 H Creatinine (0.70-1.30) mg/dL 1.6 H Est GFR (CKD-EPI 2020) (mL/min/1.73m2) 49.94 Glucose (74-106) mg/dL 92 Calcium (8.5-10.1) mg/dL 9.3 Total Bilirubin (0.2-1.0) mg/dL 1.0 AST (15-37) U/L 19 ALT (16-63) U/L 24 Alkaline Phosphatase (46-116) U/L 58 Total Protein (6.4-8.2) g/dL 7.6 Albumin (3.4-5.0) g/dL 4.0 Urine Color (Yellow) Yellow Urine Clarity (Clear) Clear Urine pH (5-8) 6.0 Ur Specific [place] (1.005-1.025) 1.010 Urine Protein (Negative) mg/dL Negative Urine Ketones (Negative) mg/dL Negative Urine Blood (Negative) Trace-intact H Urine Nitrite (Negative) Negative Urine Bilirubin (Negative) Negative Urine Urobilinogen (Up TO 0.2) EU/dL 0.2 Ur Leukocyte Esterase (Negative) Negative Urine Glucose (Negative) mg/dL Negative
[2021-12-03 17:13] LABS: Bacteria Negative HPF (Negative); C & S Indicated? No; Casts Negative LPF (Negative); Crystals Few Amorphous HPF (Negative); Epithelial Cells Few HPF (Negative); Mucus Negative (Negative); RBC 0-2 HPF (0-2)
--- NOTE | 2021-12-03 17:19 | NUR.NOTE ---
Nursing Note: Referral faxed to PCP for renal insufficiency and hypertension; for early next week.
== END 2021-12-03 17:31 | disposition home or self-care (01) ==
PROVIDERS: Emergency Provider Physician Assistant; PCP Nurse Practitioner Family
DX: I95.9 Hypotension, unspecified (principal); N28.9 Disorder of kidney and ureter, unspecified; E86.0 Dehydration; I10 Essential (primary) hypertension; Z87.891 Personal history of nicotine dependence
CPT/HCPCS: 36415; 80053; 93005; 96360; 99284; 81003; 81015; 85025; 93010

== ENCOUNTER 2021-12-11 16:10 | Outpatient (REF) | payer BC, SELFPAY ==
[2021-12-11 20:08] LABS: Anion Gap 6.1 mmol/L (3-11); BUN 17 mg/dL (7-18); CO2 29.9 mmol/L (21.0-32.0); Calcium 8.9 mg/dL (8.5-10.1); Chloride 106 mmol/L (98-107); Estimated GFR 87.78 (mL/min/1.73m2); Glucose 95 mg/dL (74-106); Potassium 4.3 mmol/L (3.5-5.1); Sodium 142 mmol/L (136-145)
== END 2021-12-11 16:11 | disposition home or self-care (01) ==
LOC: NCHCN 16:10
PROVIDERS: PCP Nurse Practitioner Family; Visit Provider Nurse Practitioner Family
DX: I95.9 Hypotension, unspecified (principal); N28.9 Disorder of kidney and ureter, unspecified
CPT/HCPCS: 80048

== ENCOUNTER 2022-01-05 03:07 | Outpatient (CLI) | payer BC, SELFPAY ==
[2022-01-05 13:10] LABS: Abs Immature Grans 0.02 10^3/uL (0.0-0.06); Absolute Basophil Count 0.03 10^3/uL (0.0-0.2); Absolute Lymphocyte Count 1.23 10^3/uL (1.2-3.4); Absolute Monocyte Count 0.53 10^3/uL (0.1-0.8); Absolute Neutrophil Count 4.33 10^3/uL (1.2-6.7); Basophils % 0.5; Eosinophils % 1.6; HCT 41.1 % (40.0-50.0); HGB 13.8 g/dL (13.5-17.5); Immature Grans % 0.3; Lymphocytes % 19.7; MCH 29.6 pg (27.0-33.0); MCHC 33.6 % (32.0-36.0); MCV 88 fL (80-95); MPV 9.8 fL (8.0-11.0); Monocytes % 8.5; Neutrophils % 69.4; Platelet Count 257 10^3/uL (130-400); RBC 4.66 10^6/uL (4.36-5.78); RDW 13.5 % (11.8-14.1); RDW-SD 43.8 fL; WBC 6.24 10^3/uL (4.4-10.8)
[2022-01-05 13:25] LABS: ALT 26 U/L (16-63); AST 18 U/L (15-37); Albumin 3.8 g/dL (3.4-5.0); Alkaline Phosphatase 57 U/L (46-116); Anion Gap 7.7 mmol/L (3-11); BUN 21 mg/dL (7-18); Bilirubin, Total 1.1 mg/dL (0.2-1.0); CO2 30.3 mmol/L (21.0-32.0); CREATININE 1.1 mg/dL (0.70-1.30); Calcium 8.8 mg/dL (8.5-10.1); Chloride 106 mmol/L (98-107); Glucose 75 mg/dL (74-106); Potassium 3.9 mmol/L (3.5-5.1); Sodium 144 mmol/L (136-145)
== END 2022-01-05 03:08 | disposition home or self-care (01) ==
LOC: LBO 03:07
PROVIDERS: PCP Nurse Practitioner Family; Visit Provider Internal Medicine Hematology & Oncology
DX: C43.59 Malignant melanoma of other part of trunk (principal)
CPT/HCPCS: 36415; 80053; 85025

== ENCOUNTER 2022-02-23 13:26 | Emergency (ER) | payer BC, SELFPAY ==
[2022-02-23 13:40] VITALS: BP 146/78; PULSE 88; RESP 17; TEMP 36.8; O2SAT 96
[2022-02-23 13:45] VITALS: RESP 17
--- NOTE | 2022-02-23 13:45 | DI.US_ITS ---
Exam(s) US LOWER EXTREMITY VENOUS RT EXAM: US LOWER EXTREMITY VENOUS RT CLINICAL HISTORY: right calf pain w/ superficial clot noted, r/o dvt. TECHNIQUE: Lower extremity venous ultrasound performed using grayscale, color-flow, and spectral Do ppler analysis. COMPARISON: No exams were available for comparison FINDINGS: The common femoral, femoral and popliteal veins demonstrate normal compressibility, augmentation, and color Doppler. The posterior tibial veins are patent. There is a dilated superficial vein is in the subcutaneous fat of the calf containing thrombus. This measures 4 cm in length. No saphenous throm bosis.. No hematoma or Javier's cyst is seen. IMPRESSION: superficial thrombosis in the calf region. No evidence of DVT. DATA REPOSITORY:
--- NOTE | 2022-02-23 13:48 | W.ED.GENAD ---
Discharge Plan Disposition Patient Disposition: Home Condition: Good Discharge Details Clinical Impression: Superficial thrombophlebitis Primary Care Provider: Carolina Paul ED Provider: Jason Paige Home Meds and New Rx's Prescriptions: New cephalexin 500 mg capsule 500 mg PO QID 5 Days Qty: 20 0RF No Action tamsulosin 0.4 mg capsule 0.4 mg PO DAILY Qty: 90 4RF Rx Instructions: take med 30mins after breakfast daily hydroxychloroquine 200 mg tablet 200 mg PO DAILY lisinopril 20 mg tablet 10 mg PO DAILY epinephrine [EpiPen 2-Jose] 0.3 mg/0.3 mL auto-injector 0.3 mg IM ONCE Qty: 1 0RF Rx Instructions: as a single dose Nucala 100 mg/mL auto-injector 100 mg subcut Q4W Qty: 1 11RF Advair HFA 230-21 mcg/actuation HFA aerosol inhaler See Rx Instructions .ROUTE .COMPLEX Qty: 12 12RF Dose Instruction: INHALE TWO PUFFS BY MOUTH TWICE A DAY Rx Instructions: INHALE TWO PUFFS BY MOUTH TWICE A DAY multivitamin [Daily Multi-Vitamin] 1 EACH tablet 1 tab PO DAILY Fish Oil 300 MG capsule 300 mg PO DAILY albuterol sulfate 8.5 GM HFA aerosol inhaler 2 puff Inhalation Q4H PRN Qty: 1 0RF montelukast 10 MG tablet 10 mg PO DAILY Discharge Instructions Instructions: Superficial Thrombophlebitis (ED) Additional Instructions: At this time your ultrasound shows no evidence of deep blood clot. Please take a 325 mg aspirin daily for the next 2 to 3 weeks. Apply warm compresses to the area 2-3 times per day to help the clots reabsorb, and wear knee-high compression stockings to prevent any worsening blood clots. Please take the antibiotic as prescribed to prevent any infection. It is been sent to your pharmacy on file. If you notice any worsening of your symptoms, or any new symptoms such as vomiting, diarrhea, fever, chills, shortness of breath, chest pain, numbness, weakness, or fainting , please return immediately to the emergency department for reevaluation. Please follow up with your primary care provider as soon as possible for reassessment and reevaluation. As always, it was a pleasure participating in your medical care today. Referrals: Carolina Paul [Primary Care Provider] - Medical Decision Making 56-year-old male with a past medical history of alpha-1 antitrypsin deficiency, family history of blood clots, BPH, hypertension, who presents today for evaluation of right calf pain. Patient states that for the last 2 weeks he has noted mild pain and swelling in that area. It is tender to the touch. He denies any recent long trips, surgeries or procedures. His parents both had blood clots. He has no history of blood clots. He denies any chest pain or shortness of breath or pain other than that single location. 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 No other complaints at this time. No other modifying factors. Exam demonstrates a small area of erythema with nodular ropiness consistent with superficial thrombophlebitis. Bedside ultrasound confirms presence of superficial clots. However with the patient's family history and risk factors we will get formal ultrasonography to evaluate for any deep clots. Symptoms clinically inconsistent with pulmonary embolism at this time. 2:30 PM US Returned, and at this time there is evidence of the superficial thrombosis in the calf region but no evidence of DVT. The dilated superficial vein is in the subcutaneous fat of the calf, measuring 4 cm in length. No saphenous vein thrombosis. No deep vein thrombosis. Patient otherwise feels well. Recommend compression stocking, warm compresses, daily aspirin for the next 1 to 2 weeks, and will do a short dose of Keflex for any potential infectious phlebitis component. Discussed red flags which to return. I have extensively reviewed the treatment plan and discharge instructions with the patient. I have addressed all patient concerns at this time. The patient was made aware of what symptoms to monitor for that would warrant a return to the emergency department. Discussed the plan with the patient, they demonstrate verbal understanding and agreement with our assessment and plan at this time. The documentation in this chart was dictated using [employer] dictation software. Please excuse any dictation errors. FINDINGS: The common femoral, femoral and popliteal veins demonstrate normal compressibility, augmentation, and color Doppler. The posterior tibial veins are patent. There is a dilated superficial vein is in the subcutaneous fat of the calf containing thrombus. This measures 4 cm in length. No saphenous thrombosis.. No hematoma or Javier's cyst is seen. IMPRESSION: superficial thrombosis in the calf region. No evidence of DVT. Sign Out No HPI General Date/Time Provider Initiated Documentation: 02/23/22 13:46. HPI Narrative: 56-year-old male with a past medical history of alpha-1 antitrypsin deficiency, family history of blood clots, BPH, hypertension, who presents today for evaluation of right calf pain. Patient states that for the last 2 weeks he has noted mild pain and swelling in that area. It is tender to the touch. He denies any recent long trips, surgeries or procedures. His parents both had blood clots. He has no history of blood clots. He denies any chest pain or shortness of breath or pain other than that single location. 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 No other complaints at this time. No other modifying factors. Related Data Home Medications Medication Instructions Recorded Confirmed multivitamin (Daily Multi-Vitamin 1 tab PO DAILY 05/31/13 02/23/22 tablet) omega-3 fatty acids 300 mg capsule 300 mg PO DAILY 05/31/13 02/23/22 (Fish Oil) albuterol sulfate 90 mcg/actuation 2 puff inhalation Q4H PRN ##1 06/26/13 02/23/22 aerosol inhaler montelukast 10 mg tablet 10 mg PO DAILY 08/26/16 02/23/22 hydroxychloroquine 200 mg tablet 200 mg PO DAILY 10/21/20 02/23/22 epinephrine 0.3 mg/0.3 mL 0.3 mg (0.3 mL) IM ONCE #1 ea 01/17/21 02/23/22 injection, auto-injector (EpiPen 2-Jose) lisinopril 20 mg tablet 10 mg PO DAILY 10/22/21 02/23/22 tamsulosin 0.4 mg capsule 0.4 mg PO DAILY #90 tab-caps 10/22/21 02/23/22 mepolizumab 100 mg/mL subcutaneous 100 mg subcut Q4W #1 mL 12/12/21 02/23/22 auto-injector (Nucala) fluticasone propionate 230 See Rx Instructions .Route 01/26/22 02/23/22 mcg-salmeterol 21 mcg/actuation .COMPLEX #12 grams HFA inhaler (Advair HFA) cephalexin 500 mg capsule 500 mg PO QID 5 days #20 caps 02/23/22 Previous Rx's Medication Instructions Recorded albuterol sulfate 90 mcg/actuation 2 puff inhalation Q4H PRN ##1 06/26/13 aerosol inhaler epinephrine 0.3 mg/0.3 mL 0.3 mg (0.3 mL) IM ONCE #1 ea 01/17/21 injection, auto-injector (EpiPen 2-Jose) tamsulosin 0.4 mg capsule 0.4 mg PO DAILY #90 tab-caps 10/22/21 mepolizumab 100 mg/mL subcutaneous 100 mg subcut Q4W #1 mL 12/12/21 auto-injector (Nucala) fluticasone propionate 230 See Rx Instructions .Route 01/26/22 mcg-salmeterol 21 mcg/actuation .COMPLEX #12 grams HFA inhaler (Advair HFA) cephalexin 500 mg capsule 500 mg PO QID 5 days #20 caps 02/23/22 Allergies Allergy/AdvReac Type Severity Reaction Status Date / Time No Known Allergies Allergy Unverified 02/23/22 13:46 General Stated Complaint: Vascular EUFEMIA: 4 Review of Systems All systems reviewed & are unremarkable except as noted in HPI and below PFSH All Active Problems (Updated 02/23/22 @ 14:23 by Jason Paige DO) Superficial thrombophlebitis (Acute) Right leg swelling (Acute) 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 Hypotension (Acute) Asthma (Chronic) Hypertension (Acute 01/26/17) BPH (benign prostatic hyperplasia) (Acute 01/26/17) Medical History GERD (gastroesophageal reflux disease) History of malignant melanoma Hyperlipidemia Hypertension Surgical History Colonoscopy - MAC EGD - MAC Skin Cancer Removal melenoma Social History Smoking/Tobacco Use Status: Former Tobacco Use tobacco type: cigarettes Quit Date: 03/29/96 Tobacco: How many years used: 15 Smoking risk assessment performed?: Yes Alcohol Intake: current Alcohol Intake frequency: holidays/special occasions only Drug use: Never Substance use type: does not use Do you feel safe at home: Yes Do you feel safe in your relationship?: Yes Exam Narrative Exam Narrative: 1.Const: Well-nourished, Well-developed, appearing stated age 2.Eyes: PERRL, no conjunctival injection, and symmetrical lids. 3.ENT: Atraumatic external nose and ears. Moist MM. Neck: Symmetric, trachea midline, No thyromegaly. 4.CVS: +S1/S2, No murmurs or gallops. Peripheral pulses 2+ and equal in all extremities. Brisk capillary refill in all extremities. 5.RESP: Unlabored respiratory effort. Clear to auscultation bilaterally. No wheezes rales or rhonchi 6.GI: Soft, Nontender/Nondistended, No hepatosplenomegaly. No guarding or rebound. 7.MSK: Normocephalic/Atraumatic, Extremities w/o deformity or ttp No cyanosis or clubbing, Normal movement of all extremities. Patient's right calf demonstrates a small area of erythema and ropey nodularity on the medial aspect of the mid calf. Slightly tender as well. No distal swelling. Dorsalis pedis and posterior tibial pulses are +2 bilaterally. No deep calf tenderness. No mid thigh tenderness. 8.Skin: Warm, Dry. No rashes or lesions. 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 Sensation grossly intact, no focal neurologic deficits. 10.Psych: (AAO) x3. Appropriate mood and affect Course Vital Signs Vital signs: Vital Signs Temperature 36.8 C 02/23/22 13:40 Pulse 88 02/23/22 13:40 Respiratory Rate 17 02/23/22 13:40 Blood Pressure 146/78 H 02/23/22 13:40 Pulse Oximetry 96 02/23/22 13:40 Temperature 36.8 C 02/23/22 13:40 Temperature Source Oral 02/23/22 13:40 Pulse 88 02/23/22 13:40 Respiratory Rate 17 02/23/22 13:45 Respiratory Effort Non-Labored 02/23/22 13:45 Respiratory Depth Normal 02/23/22 13:45 Respiratory Pattern Normal 02/23/22 13:45 Blood Pressure 146/78 H 02/23/22 13:40 Blood Pressure Position Sitting 02/23/22 13:40 Pulse Oximetry 96 02/23/22 13:40 Oxygen Delivery Method Room Air 02/23/22 13:40 Oxygen Flow Rate 0 02/23/22 13:40 Pain Level 10 02/23/22 13:40
== END 2022-02-23 14:50 | disposition home or self-care (01) ==
PROVIDERS: Emergency Provider Student in an Organized Health Care Education/Training Program; PCP Nurse Practitioner Family
DX: I80.01 Phlebitis and thrombophlebitis of superficial vessels of right lower extremity (principal)
CPT/HCPCS: 99284; 93971; 99283

== ENCOUNTER 2022-04-02 10:46 | Emergency (ER) | payer BC, SELFPAY ==
[2022-04-02 11:06] VITALS: BP 121/73; PULSE 75; RESP 18; TEMP 36.9; O2SAT 94
--- NOTE | 2022-04-02 13:04 | W.ED.GENAD ---
Discharge Plan Disposition Patient Disposition: Home Condition: Serious Discharge Details Clinical Impression: Pneumonia Primary Care Provider: Carolina Paul ED Provider: Joe Estrella Home Meds and New Rx's Prescriptions: New doxycycline hyclate 100 mg tablet 100 mg PO BID Qty: 10 0RF amoxicillin-pot clavulanate 875-125 mg tablet 1 tab PO BID Qty: 10 0RF Continued tamsulosin 0.4 mg capsule 0.4 mg PO DAILY Qty: 90 4RF Rx Instructions: take med 30mins after breakfast daily hydroxychloroquine 200 mg tablet 200 mg PO DAILY lisinopril 20 mg tablet 10 mg PO DAILY epinephrine [EpiPen 2-Ojse] 0.3 mg/0.3 mL auto-injector 0.3 mg IM ONCE Qty: 1 0RF Rx Instructions: as a single dose Nucala 100 mg/mL auto-injector 100 mg subcut Q4W Qty: 1 11RF Advair HFA 230-21 mcg/actuation HFA aerosol inhaler See Rx Instructions .ROUTE .COMPLEX Qty: 12 12RF Dose Instruction: INHALE TWO PUFFS BY MOUTH TWICE A DAY Rx Instructions: INHALE TWO PUFFS BY MOUTH TWICE A DAY multivitamin [Daily Multi-Vitamin] 1 EACH tablet 1 tab PO DAILY Fish Oil 300 MG capsule 300 mg PO DAILY albuterol sulfate 8.5 GM HFA aerosol inhaler 2 puff Inhalation Q4H PRN Qty: 1 0RF montelukast 10 MG tablet 10 mg PO DAILY Discharge Instructions Instructions: Pneumonia (ED) Additional Instructions: Please be sure to use your albuterol as prescribed every 4 hours while you are having shortness of breath and wheeze. Take antibiotics as prescribed. You were given initial dose here in the emergency department. Your next dose should be late tonight. 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 Please drink plenty of fluids to stay hydrated and allow for plenty of rest. Please contact your primary care physician to arrange follow-up. Return to the ER immediately for any worsening or new concerning symptoms. Referrals: Carolina Paul [Primary Care Provider] - Discharge Data Discharge Date/Time-TO BE ENTERED AT DEPARTURE: 04/02/22 13:25 Medical Decision Making 56-year-old male with history of asthma, COPD, here with cough and congestion with associated productive cough, shortness of breath intermittently and low-grade fever. Patient is saturating 94% on room air with no respiratory distress. He does have rhonchi bilaterally. Given risk factors, plan to treat for clinical pneumonia with Augmentin and doxycycline. I will give initial dose here in the emergency department. Consider COVID and influenza. Rapid testing was performed and negative. Usual customary discharge instructions were reviewed with the patient. He was encouraged to follow-up with PCP and return immediately for any worsening or new concerning symptoms. HPI General Mode of arrival: ambulatory. Date/Time Provider Initiated Documentation: 04/02/22 11:20. Limitations to Documentation: no limitations. Information obtained by: patient. HPI Narrative: 56-year-old male with history of asthma, COPD, here with chief complaint of cough and congestion with associated shortness of breath intermittently and low-grade fever. Patient notes cough is intermittently productive. Symptoms are moderate with no modifiers. He has had symptoms for approximately 1 week. Related Data Home Medications Medication Instructions Recorded Confirmed multivitamin (Daily Multi-Vitamin 1 tab PO DAILY 05/31/13 04/02/22 tablet) omega-3 fatty acids 300 mg capsule 300 mg PO DAILY 05/31/13 04/02/22 (Fish Oil) albuterol sulfate 90 mcg/actuation 2 puff inhalation Q4H PRN ##1 06/26/13 04/02/22 aerosol inhaler montelukast 10 mg tablet 10 mg PO DAILY 08/26/16 04/02/22 hydroxychloroquine 200 mg tablet 200 mg PO DAILY 10/21/20 04/02/22 epinephrine 0.3 mg/0.3 mL 0.3 mg (0.3 mL) IM ONCE #1 ea 01/17/21 04/02/22 injection, auto-injector (EpiPen 2-Jose) lisinopril 20 mg tablet 10 mg PO DAILY 10/22/21 04/02/22 tamsulosin 0.4 mg capsule 0.4 mg PO DAILY #90 tab-caps 10/22/21 04/02/22 mepolizumab 100 mg/mL subcutaneous 100 mg subcut Q4W #1 mL 12/12/21 04/02/22 auto-injector (Nucala) fluticasone propionate 230 See Rx Instructions .Route 01/26/22 04/02/22 mcg-salmeterol 21 mcg/actuation .COMPLEX #12 grams HFA inhaler (Advair HFA) amoxicillin 875 mg-potassium 1 tab PO BID #10 tabs 04/02/22 clavulanate 125 mg tablet doxycycline hyclate 100 mg tablet 100 mg PO BID #10 tabs 04/02/22 Previous Rx's Medication Instructions Recorded albuterol sulfate 90 mcg/actuation 2 puff inhalation Q4H PRN ##1 06/26/13 aerosol inhaler epinephrine 0.3 mg/0.3 mL 0.3 mg (0.3 mL) IM ONCE #1 ea 01/17/21 injection, auto-injector (EpiPen 2-Jose) tamsulosin 0.4 mg capsule 0.4 mg PO DAILY #90 tab-caps 10/22/21 mepolizumab 100 mg/mL subcutaneous 100 mg subcut Q4W #1 mL 12/12/21 auto-injector (Nucala) fluticasone propionate 230 See Rx Instructions .Route 01/26/22 mcg-salmeterol 21 mcg/actuation .COMPLEX #12 grams HFA inhaler (Advair HFA) amoxicillin 875 mg-potassium 1 tab PO BID #10 tabs 04/02/22 clavulanate 125 mg tablet doxycycline hyclate 100 mg tablet 100 mg PO BID #10 tabs 04/02/22 Allergies Allergy/AdvReac Type Severity Reaction Status Date / Time No Known Allergies Allergy Unverified 04/02/22 11:12 General Stated Complaint: RespSymp EUFEMIA: 4 Review of Systems All systems reviewed & are unremarkable except as noted in HPI and below Constitutional Constitutional: Reports fever(s) Respiratory Respiratory: Reports cough PFSH All Active Problems (Updated 04/02/22 @ 13:07 by Joe Estrella MD) Pneumonia (Acute) Right leg swelling (Acute) 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 Hypotension (Acute) Asthma (Chronic) Hypertension (Acute 01/26/17) BPH (benign prostatic hyperplasia) (Acute 01/26/17) Medical History GERD (gastroesophageal reflux disease) History of malignant melanoma Hyperlipidemia Hypertension Surgical History Colonoscopy - MAC EGD - MAC Skin Cancer Removal melenoma Social History Smoking/Tobacco Use Status: Former Tobacco Use tobacco type: cigarettes Quit Date: 03/29/96 Tobacco: How many years used: 15 Smoking risk assessment performed?: Yes Alcohol Intake: current Alcohol Intake frequency: holidays/special occasions only Drug use: Never Substance use type: does not use Do you feel safe at home: Yes Do you feel safe in your relationship?: Yes Exam Const General: cooperative and no acute distress HENMT Mouth: moist mucous membranes Eyes Conjunctivae: normal conjunctivae Sclera: normal sclerae EOM: EOM intact bilaterally Neck Neck: trachea midline Resp Auscultation: no rales, rhonchi and no wheezes Cardio Rate: regular rate and not tachycardic Rhythm: regular rhythm GI Palpation: soft, not firm, no guarding, no masses, not rigid and nontender Skin General skin exam: no rashes or lesions noted Neuro General: patient alert, patient awake, patient oriented x3 and tone normal Extrem General: no edema Psych Appearance: grossly normal Mental Status: mental status grossly normal Speech and Movement: speech and movement normal Course Vital Signs Vital signs: Vital Signs Temperature 36.9 C 04/02/22 11:06 Pulse 75 04/02/22 11:06 Respiratory Rate 18 04/02/22 11:06 Blood Pressure 121/73 04/02/22 11:06 Pulse Oximetry 94 04/02/22 11:06 Temperature 36.9 C 04/02/22 11:06 Temperature Source Oral 04/02/22 11:06 Pulse 75 04/02/22 11:06 Respiratory Rate 18 04/02/22 11:06 Blood Pressure 121/73 04/02/22 11:06 Blood Pressure Position Sitting 04/02/22 11:06 Pulse Oximetry 94 04/02/22 11:06 Oxygen Delivery Method Room Air 04/02/22 11:06 Oxygen Flow Rate 0 04/02/22 11:06 Pain Level 0 04/02/22 11:06
[2022-04-02] MEDS: Doxycycline Hyclate 100 MG CAP PO (13:10)
[2022-04-02] MEDS: Amoxicillin 875/Clav. 125 TAB PO (13:10)
[2022-04-04 11:50] LABS: COVID-19 RT-PCR UVMMC Result Negative (Negative)
--- NOTE | 2022-04-04 13:50 | NUR.NOTE ---
Nursing Note: gave patient his covid negative results
== END 2022-04-02 13:25 | disposition home or self-care (01) ==
PROVIDERS: Emergency Provider Student in an Organized Health Care Education/Training Program; PCP Nurse Practitioner Family
DX: J18.9 Pneumonia, unspecified organism (principal); J44.9 Chronic obstructive pulmonary disease, unspecified; I10 Essential (primary) hypertension; Z20.822 Contact with and (suspected) exposure to COVID-19; Z79.51 Long term (current) use of inhaled steroids
CPT/HCPCS: 99283; U0003; 99284

== ENCOUNTER 2022-06-19 16:31 | Outpatient (REF) | payer BC, SELFPAY ==
[2022-06-19 20:44] LABS: Calculated LDL 129 mg/dL (<100); Cholesterol 214 mg/dL (<200); HDL Cholesterol 58 mg/dL (40-60); Magnesium 2.2 mg/dL (1.8-2.4); Triglyceride 139 mg/dL (<150)
[2022-06-19 20:56] LABS: Vitamin D 25 Total 19.8 ng/mL (30-100)
[2022-06-22 10:39] LABS: Hepatitis C Ab w Rflx HCV PCR Negative (Negative)
[2022-06-22 10:49] LABS: HIV-1/2 Ag & Ab Screen Negative (Negative)
== END 2022-06-19 16:32 | disposition home or self-care (01) ==
LOC: NCHCN 16:31
PROVIDERS: PCP Nurse Practitioner Family; Visit Provider Nurse Practitioner Family
DX: Z00.00 Encounter for general adult medical examination without abnormal findings (principal); E78.5 Hyperlipidemia, unspecified; M06.9 Rheumatoid arthritis, unspecified; J82.83 Eosinophilic asthma; Z11.4 Encounter for screening for human immunodeficiency virus [HIV]; Z11.59 Encounter for screening for other viral diseases; E55.9 Vitamin D deficiency, unspecified
CPT/HCPCS: 80061; 82306; 86803; 87389; 83735

== ENCOUNTER 2022-09-09 03:40 | Outpatient (CLI) | payer BC, SELFPAY ==
[2022-09-09 12:43] LABS: Abs Immature Grans 0.02 10^3/uL (0.0-0.06); Absolute Basophil Count 0.02 10^3/uL (0.0-0.2); Absolute Eosinophil Count 0.08 10^3/uL (0.0-0.7); Absolute Lymphocyte Count 1.32 10^3/uL (1.2-3.4); Absolute Monocyte Count 0.49 10^3/uL (0.1-0.8); Absolute Neutrophil Count 3.04 10^3/uL (1.2-6.7); Basophils % 0.4; Eosinophils % 1.6; HCT 45.3 % (40.0-50.0); HGB 15.5 g/dL (13.5-17.5); Immature Grans % 0.4; Lymphocytes % 26.6; MCH 29.9 pg (27.0-33.0); MCHC 34.2 % (32.0-36.0); MCV 88 fL (80-95); Monocytes % 9.9; Neutrophils % 61.1; Platelet Count 290 10^3/uL (130-400); RBC 5.18 10^6/uL (4.36-5.78); RDW 13.5 % (11.8-14.1); RDW-SD 43.3 fL; WBC 4.97 10^3/uL (4.4-10.8)
[2022-09-09 13:33] LABS: ALT 40 U/L (16-63); AST 22 U/L (15-37); Alkaline Phosphatase 66 U/L (46-116); Anion Gap 7.3 mmol/L (3-11); BUN 21 mg/dL (7-18); Bilirubin, Total 1.3 mg/dL (0.2-1.0); CO2 28.7 mmol/L (21.0-32.0); CREATININE 0.9 mg/dL (0.70-1.30); Calcium 8.9 mg/dL (8.5-10.1); Chloride 106 mmol/L (98-107); Glucose 94 mg/dL (74-106); Potassium 4.2 mmol/L (3.5-5.1); Sodium 142 mmol/L (136-145); Total Protein 7.4 g/dL (6.4-8.2)
== END 2022-09-09 03:41 | disposition home or self-care (01) ==
LOC: LBO 03:40
PROVIDERS: PCP Nurse Practitioner Family; Visit Provider Internal Medicine
DX: M06.9 Rheumatoid arthritis, unspecified (principal)
CPT/HCPCS: 36415; 80053; 85025

== ENCOUNTER 2022-09-25 14:56 | Outpatient (REF) | payer BC, SELFPAY ==
[2022-09-25 15:59] LABS: Hemoglobin A1C 5.6 % (<5.7)
== END 2022-09-25 14:57 | disposition home or self-care (01) ==
LOC: NCHCN 14:56
PROVIDERS: PCP Nurse Practitioner Family; Visit Provider Nurse Practitioner Family
DX: R73.03 Prediabetes (principal); E03.9 Hypothyroidism, unspecified
CPT/HCPCS: 82306; 83036

== ENCOUNTER 2022-12-25 18:39 | Outpatient (CLI) | payer BC, SELFPAY ==
[2022-12-25 13:34] LABS: Abs Immature Grans 0.01 10^3/uL (0.0-0.06); Absolute Basophil Count 0.04 10^3/uL (0.0-0.2); Absolute Eosinophil Count 0.06 10^3/uL (0.0-0.7); Absolute Lymphocyte Count 1.04 10^3/uL (1.2-3.4); Absolute Monocyte Count 0.57 10^3/uL (0.1-0.8); Absolute Neutrophil Count 3.12 10^3/uL (1.2-6.7); Basophils % 0.8; Eosinophils % 1.2; HCT 43.3 % (40.0-50.0); HGB 14.6 g/dL (13.5-17.5); Immature Grans % 0.2; Lymphocytes % 21.5; MCH 29.7 pg (27.0-33.0); MCHC 33.7 % (32.0-36.0); MCV 88 fL (80-95); MPV 9.8 fL (8.0-11.0); Monocytes % 11.8; Neutrophils % 64.5; Platelet Count 332 10^3/uL (130-400); RBC 4.92 10^6/uL (4.36-5.78); RDW 13.2 % (11.8-14.1); RDW-SD 42.7 fL; WBC 4.84 10^3/uL (4.4-10.8)
== END 2022-12-25 18:40 | disposition home or self-care (01) ==
LOC: LBO 01-02 18:40
PROVIDERS: PCP Nurse Practitioner Family; Visit Provider Internal Medicine
DX: M06.9 Rheumatoid arthritis, unspecified (principal); Z51.81 Encounter for therapeutic drug level monitoring
CPT/HCPCS: 36415; 85025

== ENCOUNTER 2023-01-01 18:24 | Outpatient (REF) | payer BC, SELFPAY ==
[2023-01-01 19:32] LABS: ALT 41 U/L (16-63); AST 37 U/L (15-37); Albumin 3.8 g/dL (3.4-5.0); Alkaline Phosphatase 71 U/L (46-116); Anion Gap 8.1 mmol/L (3-11); BUN 15 mg/dL (7-18); Bilirubin, Total 1.1 mg/dL (0.2-1.0); CO2 25.9 mmol/L (21.0-32.0); CREATININE 1.2 mg/dL (0.70-1.30); Calcium 8.7 mg/dL (8.5-10.1); Chloride 106 mmol/L (98-107); Glucose 97 mg/dL (74-106); Potassium 4.1 mmol/L (3.5-5.1); Sodium 140 mmol/L (136-145); Total Protein 7.1 g/dL (6.4-8.2)
[2023-01-01 19:35] LABS: Hemoglobin A1C 5.7 % (<5.7)
== END 2023-01-01 18:25 | disposition home or self-care (01) ==
LOC: NCHCN 18:24
PROVIDERS: PCP Nurse Practitioner Family; Visit Provider Nurse Practitioner Family
DX: M06.9 Rheumatoid arthritis, unspecified (principal); R73.03 Prediabetes
CPT/HCPCS: 80053; 83036

== ENCOUNTER 2023-06-04 16:26 | Outpatient (REF) | payer BC, SELFPAY ==
[2023-06-04 19:36] LABS: Abs Immature Grans 0.01 10^3/uL (0.0-0.06); HGB 14.2 g/dL (13.5-17.5); MCH 29.2 pg (27.0-33.0); MCHC 33.8 % (32.0-36.0); MCV 86 fL (80-95); MPV 12.5 fL (8.0-11.0); Platelet Count 225 10^3/uL (130-400); RBC 4.86 10^6/uL (4.36-5.78); RDW 13.6 % (11.8-14.1); RDW-SD 42.7 fL; WBC 6.53 10^3/uL (4.4-10.8)
[2023-06-04 19:53] LABS: Absolute Basophil Count 0.07 10^3/uL (0.0-0.2); Absolute Eosinophil Count 1.63 10^3/uL (0.0-0.7); Absolute Monocyte Count 0.46 10^3/uL (0.1-0.8); Absolute Neutrophil Count 2.87 10^3/uL (1.2-6.7); Diff Comment Manual Differential; RBC Morphology Normal
[2023-06-04 20:27] LABS: TSH (W/Ref FT4) 1.31 uIU/mL (0.36-3.74); Vitamin B12 601 pg/mL (193-986)
[2023-06-04 20:28] LABS: Folate > 20.0 ng/mL (8.6-20.0)
== END 2023-06-04 16:27 | disposition home or self-care (01) ==
LOC: NCHCN 16:26
PROVIDERS: PCP Nurse Practitioner Family; Referring Provider Nurse Practitioner Family; Visit Provider Nurse Practitioner Family
DX: Z00.00 Encounter for general adult medical examination without abnormal findings (principal)
CPT/HCPCS: 82607; 82746; 83735; 84443; 85025

== ENCOUNTER 2024-09-05 02:33 | Outpatient (CLI) | payer BC, SELFPAY ==
[2024-09-05 09:39] LABS: Abs Immature Grans 0.02 10^3/uL (0.0-0.06); Absolute Basophil Count 0.06 10^3/uL (0.0-0.2); Absolute Lymphocyte Count 1.14 10^3/uL (1.2-3.4); Absolute Monocyte Count 0.58 10^3/uL (0.1-0.8); Absolute Neutrophil Count 2.26 10^3/uL (1.2-6.7); Basophils % 1.1 %; Eosinophils % 25.6 %; HCT 44.6 % (40.0-50.0); HGB 14.6 g/dL (13.5-17.5); Immature Grans % 0.4 %; Lymphocytes % 20.9 %; MCH 29.9 pg (27.0-33.0); MCHC 32.7 % (32.0-36.0); MCV 91 fL (80-95); MPV 10.4 fL (8.0-11.0); Monocytes % 10.6 %; Neutrophils % 41.4 %; Platelet Count 237 10^3/uL (130-400); RBC 4.88 10^6/uL (4.36-5.78); RDW 14.1 % (11.8-14.1); RDW-SD 47.3 fL; WBC 5.46 10^3/uL (4.4-10.8)
[2024-09-05 09:42] LABS: ALT 36 U/L (16-63); AST 28 U/L (15-37); Alkaline Phosphatase 78 U/L (46-116); Anion Gap 6.7 mmol/L (3-11); BUN 21 mg/dL (7-18); CO2 29.3 mmol/L (21.0-32.0); Calcium 9.2 mg/dL (8.5-10.1); Chloride 107 mmol/L (98-107); Estimated GFR 86.16 (mL/min/1.73m2); Glucose 96 mg/dL (74-106); Potassium 4.8 mmol/L (3.5-5.1); Sodium 143 mmol/L (136-145); Total Protein 7.3 g/dL (6.4-8.2)
[2024-09-05 09:45] LABS: C-Reactive Protein < 0.50 mg/dL (<or=0.5)
[2024-09-05 09:46] LABS: ESR 2 mm/hr (0-20)
== END 2024-09-05 02:34 | disposition home or self-care (01) ==
LOC: LBO 02:33
PROVIDERS: PCP Nurse Practitioner Family; Visit Provider Internal Medicine
DX: M06.9 Rheumatoid arthritis, unspecified (principal); Z51.81 Encounter for therapeutic drug level monitoring
CPT/HCPCS: 36415; 80053; 85652; 85025; 86140